=== PATIENT | female | born 1995 | race Two or more races ===

== ENCOUNTER 2023-05-20 10:20 | Outpatient (CLI) | payer OTHER | END 2023-05-20 10:27 | disposition home or self-care (01) | LOC: PRENATAL 10:20 | PROVIDERS: ATTEND Obstetrics & Gynecology Maternal & Fetal Medicine | DX: O35.9XX0 Maternal care for (suspected) fetal abnormality and damage, unspecified, not applicable or unspecified (principal); O35.3XX0 Maternal care for (suspected) damage to fetus from viral disease in mother, not applicable or unspecified; O44.00 Complete placenta previa NOS or without hemorrhage, unspecified trimester; Z3A.20 20 weeks gestation of pregnancy ==

== ENCOUNTER 2023-09-30 07:51 | Outpatient (CLI) | payer OTHER ==
[~2023-09-30] VITALS: Ht 170.2 cm; Wt 106.1 kg
[2023-09-30 08:42] LABS: HEMATOCRIT 36.1 % (36.0-45.00); HEMOGLOBIN 12.6 g/dL (12.0-15.00); MEAN CELL VOLUME 90.2 fL (80.00-100.00); MEAN CORPUSCULAR HEMOGLOBIN 31.6 pg (27.00-32.0); MEAN CORPUSCULAR HGB CONC 35.1 g/dl (32.0-36.0); PLATELET COUNT 203 K/uL (150-450); RED CELL DISTRIBUTION WIDTH 14.5 % (11.5-14.5)
[2023-09-30 08:57] LABS: PH,URINE 6.5 (5.0-8.0); URINE APPEARANCE Clear; URINE BILIRRUBIN Negative (NEGATIVE); URINE BLOOD Negative; URINE COLOR Yellow; URINE GLUCOSE Negative (NEGATIVE); URINE LEUKOCYTE Negative; URINE NITRATE Negative; URINE PROTEIN Negative (NEGATIVE); URINE UROBILINOGEN 0.2 E.U./dl
[2023-09-30 09:00] LABS: URINE EPITHELIAL CELLS 26.4 uL (0.0-38.8); URINE RBC 8.2 uL (0.0-20.8); URINE WBC 7.1 uL (0.0-23.2)
[2023-10-10] MEDS ORDERED: PRENATAL TABLE1 EAC4 PO (17:21)
[2023-10-13] MEDS ORDERED: IBUPROFEN800 MG PO (10:02)
== END 2023-09-30 13:47 | disposition home or self-care (01) ==
LOC: OBS/DEL 07:51
PROVIDERS: ATTEND Obstetrics & Gynecology
DX: O47.1 False labor at or after 37 completed weeks of gestation (principal); Z3A.39 39 weeks gestation of pregnancy